=== PATIENT | female | born 1945 | race Native Hawaiian/Other Pacific Islander ===

== ENCOUNTER 2017-11-10 18:21 | Emergency (ER) | payer OTHER ==
[~2017-11-10] VITALS: Ht 160 cm; Wt 68.5 kg
--- NOTE | 2017-11-10 19:04 | NUR ---
Received SBAR report from Kenny Mackey RN. Patient back to ER from [place].
--- NOTE | 2017-11-10 19:13 | NUR ---
Patient reports pain on left hip, declines pain medicine, reports "doesn't trust pain meds".
[2017-11-10] MEDS ORDERED: IBUPROFEN 600 MG TABLET PO ONE (19:15)
[2017-11-10] MEDS ORDERED: IBUPROFEN 600 MG TABLET ONE (19:18)
[2017-11-10] MEDS ORDERED: NEOMY/BACITRA/POLYMYXIN B OINT UD PACKET TP ONE ×2 (19:39→19:45)
--- NOTE | 2017-11-10 19:48 | NUR ---
Patient reports pain decreased on left hip, now maybe 2 or 3.
--- NOTE | 2017-11-10 20:40 | NUR ---
Xray at bedside.
--- NOTE | 2017-11-10 21:00 | NUR ---
Patient discharged to home in stable conditon. Written and verbal after care instructions given. Patient verbalizes understanding of instructions. Patient ambulated out of ER with steady gait, VSS, no acute signs of distress, all belongings taken.
[2017-11-10 21:01] VITALS: BP 145/75
== END 2017-11-10 21:02 | disposition home or self-care (01) ==
LOC: ER 18:21
DX: M25.562 Pain in left knee (principal); M25.552 Pain in left hip; I10 Essential (primary) hypertension; E78.5 Hyperlipidemia, unspecified
CPT/HCPCS: 72192; 73560; A4663